=== PATIENT | female | born 1975 | race Caucasian/White ===

== ENCOUNTER 2023-07-30 19:08 | Emergency (ER) | payer SELFPAY ==
[2023-07-30 19:13] VITALS: BP 160/94
--- NOTE | 2023-07-30 19:39 | ED.GENMED ---
History of Present Illness
General
Chief Complaint: Blood and Body Fluid Exposure
Time Seen by Provider: 07/30/23 19:30
Travel History
Have you had any contact with someone who has COVID-19?: Yes
Comment: patients
Do you have any symptoms of coronavirus? Fever > 100 degrees, chills, cough, shortness of breath, sore throat, loss of taste or smell, muscle aches, or headache?: No
History of Present Illness
History of Present Illness:
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 The patient has consented
to give labs. No other complaints. No prior history of hepatitis or HIV.
Review of Systems
Review of Systems
Allergies reviewed?: Yes
All Other Systems: ROS reviewed and negative except as documented in HPI and ROS
Phy Exam
Physical Exam
Physical Exam:
GEN: Well appearing, NAD, WDWN
HEENT: Oral mucosa moist, no scleral icterus
Cardiac: Regular rate
Lung: No respiratory distress, no tachypnea
MSK: No gross deformity or injuries
Skin: Good color, no pallor or jaundice, no rashes
Neuro: AO x3, moves all extremities freely
Psych: Calm, cooperative
Course
Orders/Labs/Results
Orders:
Orders
07/30/23 19:19
Pt has had a significant HIV exposure? Routine
HIV Exposure is significant?: No
07/30/23 19:46
HIV Combo Urgent
Hepatitis B Surface Antibody Urgent
Hepatitis B Surface Antigen Urgent
Hepatitis C Antibody Urgent
Vital Signs
Initial and Last Documented VS:
Initial Vital Signs
Temp Pulse Resp BP Pulse Ox
97.4 F 77 20 160/94 98
07/30/23 19:13 07/30/23 19:13 07/30/23 19:13 07/30/23 19:13 07/30/23 19:13
Last Documented Vital Signs
Temp Pulse Resp BP Pulse Ox
97.4 F 77 20 160/94 98
07/30/23 19:13 07/30/23 19:13 07/30/23 19:13 07/30/23 19:13 07/30/23 19:13
MDM/Problems Addressed
MDM/Problems Addressed:
No indication for antiretroviral therapy at this juncture. Source patient is reportedly consented for blood
*Critical Care Note
Total Time (30-74mins, 75-104mins- exclusive of procedures): Not Applicable
ED Attending Note
-
Portions of this chart may have been created with voice recognition software.� Occasional wrong word or��sound alike� substitutions may have occurred due to the inherent limitations of voice recognition software.
Discharge Plan
Departure
Patient Disposition: Home (Routine Discharge)
Date of Disposition: 07/30/23
Time of Disposition: 19:39
Patient with high blood pressure during this ER visit?: No
Discharge Problem:
Needlestick injury accident with exposure to body fluid
Stand Alone Forms: Bl/Fluid Consent/Declination, Blood Body/Fluid Exposure
Interventions
Interventions:
*Risk Screen - Suicide Last Done: 07/30/23 19:52
*General Assessment Last Done: 07/30/23 19:13
*Neglect/Abuse Screening Last Done: 07/30/23 19:13
ED- Fall Risk Assessment Last Done: 07/30/23 19:13
*ED COVID-19 Vaccine History Last Done: 07/30/23 19:13
*Nursing Disposition Last Done: 07/30/23 19:52
ED-EENT Assessment Last Done: 07/30/23 19:52
ED-Skin Assessment Last Done: 07/30/23 19:51
Discharge Date and Time
Discharge Date/Time: 07/30/23 19:52
[2023-07-30 21:38] LABS: Hepatitis B Surface Antigen Negative (Negative)
[2023-07-30 21:41] LABS: HIV Combo Negative (Negative)
[2023-07-30 21:56] LABS: Hepatitis B Surface Antibody Negative; Hepatitis C Antibody Negative (Negative)
== END 2023-07-30 19:52 | disposition home or self-care (01) ==
LOC: EMR 19:08
PROVIDERS: Emergency Medicine; EMERGENCY PHYSICIAN Emergency Medicine
DX: Z77.21 Contact with and (suspected) exposure to potentially hazardous body fluids (principal); W46.0XXA Contact with hypodermic needle, initial encounter; Y99.0 Civilian activity done for income or pay
CPT/HCPCS: 99283; 86706; 86803; 87340; 87389

== ENCOUNTER → 2024-11-07 07:00 | Outpatient (REF) | payer BC, SELFPAY ==
[2024-11-07 07:34] LABS: % Basophils 0.9 % (0-2); % Eosinophils 7.3 % (0-6); % Immature Granulocytes 0.2 % (0-0.5); % Lymphocytes 25.6 % (20.5-51.1); % Monocytes 7.7 % (1.7-9.3); % Neutrophils 58.3 % (42.2-75.2); Absolute Basophils 0.1 10^3/uL (0-0.2); Absolute Eosinophils 0.4 10^3/uL (0-0.7); Absolute Lymphocytes 1.4 10^3/uL (1.2-3.4); Absolute Monocytes 0.4 10^3/uL (0.1-0.6); Absolute Neutrophils 3.3 10^3/uL (1.4-6.5); Hematocrit 39.5 % (37.0-47.0); Hemoglobin 13.5 g/dL (12.0-16.0); Mean Corp Hgb Conc. 34.2 g/dL (33.0-37.0); Mean Corpuscular Hgb 30.4 pg (27.0-31.0); Mean Platelet Volume 10.4 fL (7.4-10.4); Nucleated Red Blood Cells % 0 %; Platelet Count 276 10^3/uL (130-400); Red Blood Cell Count 4.44 10^6/uL (4.20-5.40); Red Cell Dist. Width 14.5 % (11.5-14.5); White Blood Cell Count 5.6 10^3/uL (4.8-10.8)
[2024-11-07 08:22] LABS: ALT (SGPT) 14 U/L (0-35); AST (SGOT) 17 U/L (14-36); Albumin 4.4 g/dl (3.5-5.0); Alkaline Phosphatase 73 U/L (38-126); Blood Urea Nitrogen 14 mg/dl (7-17); Calcium 9.1 mg/dl (8.4-10.2); Carbon Dioxide 24 mmol/L (22-30); Chloride 109 mmol/L (98-107); Glucose 103 mg/dl (70-99); HDL Cholesterol 72 mg/dl; LDL Cholesterol, Calculated 119 mg/dl; Potassium 4.9 mmol/L (3.5-5.1); Sodium 141 mmol/L (135-145); Total Bilirubin 0.7 mg/dl (0.2-1.3); Total Cholesterol 207 mg/dl (50-199); Total Protein 7.1 g/dl (6.3-8.2); Triglyceride 81 mg/dl (10-149); Very Low Density Lipoprotein 16 mg/dl (0-30); eGFR > 60.00
[2024-11-07 09:16] LABS: TSH Reflex To Free T4 1.05 uIU/ml (0.47-4.68)
[2024-11-08 12:15] LABS: Mumps Virus IgG Positive; Rubeola (Measles) IgG Positive; Varicella Zoster IgG (VZV) Positive
[2024-11-08 18:57] LABS: Hepatitis B Surface Antibody Negative
== END ==
LOC: REG 07:00
PROVIDERS: ATTENDING PHYSICIAN Nurse Practitioner Adult Health
DX: Z01.84 Encounter for antibody response examination (principal); Z00.00 Encounter for general adult medical examination without abnormal findings
CPT/HCPCS: 36415; 80053; 80061; 84443; 85025; 86706; 86735; 86765; 86787

== ENCOUNTER → 2024-11-16 10:19 | Outpatient (REF) | payer BC, SELFPAY ==
[2024-11-16 13:02] LABS: Rubella Positive
[2024-11-16 14:33] LABS: Glycohemoglobin (HgbA1c) 5.2 % (4.0-5.6)
== END ==
LOC: REG 10:19
PROVIDERS: ATTENDING PHYSICIAN Nurse Practitioner Adult Health
DX: Z00.00 Encounter for general adult medical examination without abnormal findings (principal); Z23 Encounter for immunization; R73.01 Impaired fasting glucose
CPT/HCPCS: 36415; 83036; 86762